=== PATIENT | female | born 1965 | race African-American/Black ===

== ENCOUNTER 2022-07-20 09:52 | Emergency (ER) | payer BC, SELFPAY ==
[2022-07-20] MEDS ORDERED: Ketorolac Tromethamine 30 MG/ML VIAL ONE (10:19)
[2022-07-20] MEDS ORDERED: Dexamethasone 10 MG/ML VIAL ONE (11:05)
[2022-07-20] MEDS ORDERED: Diazepam 10 MG/2 ML SYRINGE ONE (11:39)
[2022-07-20] MEDS ORDERED: HYDROcodone/Acetaminophen 5/325 mg Tablet ONE (12:58)
== END 2022-07-20 16:50 | disposition home or self-care (01) ==
LOC: ERS 09:52
DX: M54.31 Sciatica, right side (principal)
CPT/HCPCS: 96372; 99283; J1100; J1885; J3360

== ENCOUNTER 2024-09-14 20:38 | Emergency (ER) | payer BC ==
[2024-09-14] MEDS ORDERED: Neomycin-Polymyxin-Hc 7.5 ML BOT ONE (21:17)
== END 2024-09-14 21:20 | disposition home or self-care (01) ==
LOC: ERS 20:38
DX: H60.92 Unspecified otitis externa, left ear (principal); I10 Essential (primary) hypertension; F17.200 Nicotine dependence, unspecified, uncomplicated
CPT/HCPCS: 99282

== ENCOUNTER 2025-08-19 18:23 | Emergency (ER) | payer BC | END 2025-08-19 19:51 | disposition home or self-care (01) | LOC: ERS 18:23 | DX: K04.7 Periapical abscess without sinus (principal); I10 Essential (primary) hypertension; F17.200 Nicotine dependence, unspecified, uncomplicated | CPT/HCPCS: 99282 ==